=== PATIENT | female | born 1945 | race Caucasian/White ===

== ENCOUNTER → 2019-07-09 | Outpatient (CLI) | payer MEDICARE ==
--- NOTE | 2019-07-09 12:12 | MM ---
Reason for exam: screening (asymptomatic). Last mammogram was performed 3 years and 3 months ago. History: Patient is postmenopausal and has history of other cancer at age 68. Took estrogen for 9 years. Took progesterone for 9 years. Physical Findings: A clinical breast exam by your physician is recommended on an annual basis and results should be correlated with mammographic findings. MG Screening Mammo w CAD Bilateral CC and MLO view(s) were taken. Prior study comparison: April 11, 2016, bilateral MG screening mammo w CAD. February 18, 2015, bilateral MG screening mammo w CAD. There are scattered fibroglandular densities. There are benign appearing round vascular calcifications bilaterally. There is no discrete abnormality. ASSESSMENT: Benign, BI-RAD 2 RECOMMENDATION: Routine screening mammogram of both breasts in 1 year.
== END | disposition home or self-care (01) ==
LOC: RADMAMWWP 09:24
PROVIDERS: ATTEND Family Medicine
DX: Z12.31 Encounter for screening mammogram for malignant neoplasm of breast (principal)
CPT/HCPCS: 77067

== ENCOUNTER 2019-09-14 14:39 | Emergency (ER) | payer MEDICARE ==
[2019-09-14] MEDS ORDERED: IBUPROFEN 600 MG TAB PO STA (15:00)
--- NOTE | 2019-09-14 15:08 | ED ---
General Adult HPI - General Chief complaint: Extremity Injury, Upper Stated complaint: Fall Time Seen by Provider: 09/14/19 14:52 Source: patient, RN notes reviewed, old records reviewed Mode of arrival: wheelchair Limitations: no limitations - History of Present Illness Initial comments: 74-year-old female patient presents ED chief complaint of fall and right shoulder injury. Patient reports that she was running on a treadmill when she accidentally sped up the treadmill causing her to slide off the back. Patient forced she landed on her right shoulder. Patient reports that she has right shoulder pain radiating down the arm. Denies any trauma to head or neck. Denies any use of blood thinners. Ambulatory without difficulty. Denies all other complaints. Systemic: Pt denies fatigue, fever/chills, rash. Pt denies weakness, night sweats, weight loss. Neuro: Pt denies headache, visual disturbances, syncope or pre-syncope. HEENT: Pt denies ocular discharge or irritation, otalgia, rhinorrhea, pharyngitis or notable lymphadenopathy. Cardiopulmonary: Pt denies chest pain, SOB, heart palpitations, dyspnea on exertion. Abdominal/GI: Pt denies abdominal pain, n/v/d. : Pt denies dysuria, burning w/ urination, frequency/urgency. Denies new onset urinary or bowel incontinence. MSK: Pt denies myalgia, loss of strength or function in extremities. Neuro: Pt denies new onset weakness, paresthesias. - Related Data Allergies Allergy/AdvReac Type Severity Reaction Status Date / Time No Known Allergies Allergy Verified 09/14/19 14:50 Review of Systems ROS Statement: Those systems with pertinent positive or pertinent negative responses have been documented in the HPI. ROS Other: All systems not noted in ROS Statement are negative. Past Medical History Past Medical History: Diabetes Mellitus, Hypertension, Thyroid Disorder History of Any Multi-Drug Resistant Organisms: None Reported Additional Past Surgical History / Comment(s): thyroid Past Psychological History: No Psychological Hx Reported Smoking Status: Never smoker Past Alcohol Use History: None Reported Past Drug Use History: None Reported General Exam - General Exam Comments Initial Comments: Constitutional: NAD, AOX3, Pt has pleasant affect. HEENT: NC/AT, trachea midline, neck supple, no lymphadenopathy. Posterior pharynx non erythematous, without exudates. External ears appear normal, without discharge. Mucous membranes moist. Eyes PERRLA, EOM intact. There is no scleral icterus. No pallor noted. Cardiopulmonary: RRR, no murmurs, rubs or gallops, no JVD noted. Lungs CTAB in anterior and posterior ohara. No peripheral edema. Abdominal exam: Abdomen soft and non-distended. Abdomen non-tender to palpation in all 4 quadrants. Bowel sounds active in LLQ. No hepatosplenomegaly. No ecchymosis Neuro: CN II-XII grossly intact. No nuchal rigidity. No raccon eyes, no real sign, no hemotympanum. No cervical spinal tenderness. MSK: Right shoulder mildly tender to palpation. Active range of motion limited secondary to discomfort. No skin changes, neurovascularly intact distally. Full active range of motion elbow. No focal area of tenderness with exception of shoulder. No posterior calf tenderness bilaterally, homans sign negative bilaterally. Posterior tibialis and radial pulse +2 bilaterally. Sensation intact in upper and lower extremities. Full active ROM in upper and lower extremities, 5/5 stregnth. Limitations: no limitations Course Vital Signs 09/14/19 14:47 Temperature 98.5 F Pulse Rate 86 Respiratory 18 Rate Blood Pressure 154/64 O2 Sat by Pulse 100 Oximetry Medical Decision Making - Medical Decision Making 72-year-old female patient presents ED chief complaint right shoulder injury falling from treadmill. Plain films of right shoulder humerus and forearm displayed a comminuted proximal humeral fracture with prominent surgical neck component. A nondisplaced to minimally displaced greater tuberosity components also suggested. No acute abnormality to right forearm or distal humerus. Patient neurovascularly intact distally. Flexion and extension of wrist intact. Patient placed in a right shoulder sling. Will discharge with outpatient orthopedic follow-up on Monday. Will return to ER if condition worsens. Case discussed with Dr. Lees. . Disposition Clinical Impression: Humerus fracture Disposition: HOME SELF-CARE Condition: Stable Instructions (If sedation given, give patient instructions): Proximal Humerus Fracture (ED), Arm Fracture in Adults (ED) Additional Instructions: Follow-up with orthopedic consult on Monday. Continue to wear sling. Follow up with PCP in 1-2 days. Return to ER if condition worsens. Is patient prescribed a controlled substance at d/c from ED?: No Referrals: Dennise Diggs DO [Primary Care Provider] - 1-2 days Curt Hernandez MD [STAFF PHYSICIAN] - 1-2 days
--- NOTE | 2019-09-14 15:54 | XR ---
EXAMINATION TYPE: XR shoulder complete 3 views RT, XR humerus 2 views RT, XR forearm 2 views RT DATE OF EXAM: 09/14/2019 COMPARISON: NONE HISTORY: 74-year-old female with pain after fall FINDINGS: Right shoulder: There is a comminuted fracture of the proximal right humerus. There is impaction of a pproximately 1.7 cm with the surgical neck component and suspected greater tuberosity component as we ll. Moderate degenerative joint space narrowing at the AC joint. Humerus: No additional fracture of the more mid to distal humerus is identified. Right forearm: No acute fractures identified. Obliquity limits assessment of elbow joint effusion. IMPRESSION: 1. Right shoulder: Comminuted, at least a 2 part proximal humeral fracture with a prominent surgical neck component. A nondisplaced to minimally displaced greater tuberosity component is also suggested. 2. Right humerus and forearm: No additional acute osseous abnormality is identified.
[2019-09-14] MEDS ORDERED: ACET/COD 300 MG/30 MG STARTER PACK 6 TAB BTL PO STA (16:10)
[2019-09-14] MEDS ORDERED: IBUPROFEN 600 MG STARTER PACK 4 TAB BTL PO STA (16:10)
[2019-09-14 16:25] VITALS: BP 146/82; PULSE 91; RESP 21; TEMP 98.6
== END 2019-09-14 16:25 | disposition home or self-care (01) ==
LOC: EC 14:39
DX: S42.201A Unspecified fracture of upper end of right humerus, initial encounter for closed fracture (principal); E11.9 Type 2 diabetes mellitus without complications; I10 Essential (primary) hypertension; E07.9 Disorder of thyroid, unspecified; W19.XXXA Unspecified fall, initial encounter; Y93.A1 Activity, exercise machines primarily for cardiorespiratory conditioning
CPT/HCPCS: 99284